=== PATIENT | male | born 1950 | race Caucasian/White ===

== ENCOUNTER → 2025-01-30 12:11 | Outpatient (REF) | payer OTHER, SELFPAY | LOC: REG 12:11 | PROVIDERS: ATTENDING PHYSICIAN Psychiatry & Neurology Neurology; FAMILY PHYSICIAN Internal Medicine | DX: M53.3 Sacrococcygeal disorders, not elsewhere classified (principal); M25.551 Pain in right hip | CPT/HCPCS: 72202; 73522 ==